=== PATIENT | female | born 1970 | race Caucasian/White ===

== ENCOUNTER 2020-05-14 11:18 | Outpatient (CLI) | payer OTHER, SELFPAY ==
--- NOTE | ~2020-05-14 | XR_ITS ---
XR knee LT min 4V 05/14/2020 11:54 Indication: Left knee pain Procedure: 4 views left knee Comparison: No prior studies for comparison. Findings: There is moderate-severe osteoarthritis of the left knee, most advanced in the medial and p atellofemoral compartments. No fracture or traumatic malalignment. No significant joint effusion. Impression: 1: Moderate-severe osteoarthritis of the left knee. Reviewed, dictated and finalized at location A. LYST IMPREGNATOR Impression: 1: Moderate-severe osteoarthritis of the left knee.
--- NOTE | ~2020-05-14 | XR_ITS ---
XR knee RT min 4V 05/14/2020 11:54 Indication: Right knee pain Procedure: 4 views right knee Comparison: 07/22/2016 Findings: There is moderate-severe tricompartment osteoarthritis of the right knee, most advanced in the medial and patellofemoral compartments. No significant joint effusion. No fracture or traumatic m alalignment. No focal soft tissue abnormality. Impression: 1: Moderate-severe osteoarthritis of the right knee. Reviewed, dictated and finalized at location A. ING DIRECTOR Impression: 1: Moderate-severe osteoarthritis of the right knee.
== END 2020-05-14 11:19 | disposition home or self-care (01) ==
PROVIDERS: PCP Physician Assistant; Visit Provider Physician Assistant
DX: M17.0 Bilateral primary osteoarthritis of knee (principal)
CPT/HCPCS: 73564

== ENCOUNTER 2020-09-15 07:52 | Outpatient (CLI) | payer OTHER, SELFPAY ==
--- NOTE | 2020-09-15 09:04 | ECG_ITS ---
Measurements Intervals [place] Rate: 61 P: 22 MT: 132 QRS: -1 QRSD: 93 T: 13 QT: 441 QTc: 446 Interpretive Statements SINUS RHYTHM DELAYED PRECORDIAL R/S TRANSITION BASELINE ARTIFACT- I, III, AVR, AVF BORDERLINE ECG Electronically Signed On 09-15-2020 12:16:57 CDT by Sukhdeep Corbett D.O.
[2020-09-15 09:33] LABS: Basophils Absolute Auto 0.1 K/mm3 (0.0-0.1); Basophils Percent Auto 1.2 % (0.2-1.2); Eosinophils Absolute Auto 0.1 K/mm3 (0-0.3); Eosinophils Percent Auto 1.5 % (0-4.4); Immature Granulocyte Absolute 0.07 K/mm3 (0.00-0.031); Immature Granulocyte Percent A 1.2 % (0-0.5); Lymphocytes Absolute Auto 1.35 K/mm3 (0.9-3.2); Lymphocytes Percent Auto 22.7 % (18.3-44.2); Mean Corpuscular HGB Conc 33.3 g/dl (32-36); Mean Corpuscular Hemoglobin 30.6 pg (26-34); Mean Corpuscular Volume 91.9 fl (80-100); Mean Platelet Volume 9.5 fl (7.4-10.4); Monocytes Absolute Auto 0.6 K/mm3 (0.1-0.6); Monocytes Percent Auto 10.6 % (2.6-8.5); Neutrophils Absolute Auto 3.7 K/mm3 (1.3-6.7); Neutrophils Percent Auto 62.8 % (45.5-73.1); Platelet Count Result 317 k/mm3 (150-375); Red Blood Count 4.57 M/mm3 (4.2-5.4); Red Cell Distribution Width 12.1 % (11.5-14.5); White Blood Count 5.9 K/mm3 (4.5-10.0)
[2020-09-15 09:49] LABS: Add Urine Microscopic? YES; Appearance Urine Cloudy (Clear); Bacteria Urine Trace /hpf; Bilirubin Urine Negative (Negative); Blood Urine 3+ (Negative); Color Urine Amber (Yellow); Glucose Urine UA Negative (Negative); Ketones Urine Negative (Negative); Leukocyte Esterase Ur Trace LEU/UL (Negative); Mucus Urine Few /lpf; Nitrate Urine Negative (Negative); Protein Urine 1+ mg/dL (Negative); RBC Urine 0-2 /hpf (0-2); Specific Grav Ur 1.025 (1.001-1.035); Squamous Epithelial Cell Urine Few /hpf (Few); Urobilinogen Urine Negative mg/dL (<2.0)
[2020-09-15 09:58] LABS: INR 0.9
[2020-09-15 09:59] LABS: Partial Thromboplastin Time 23.7 SECONDS (22.3-36.8)
[2020-09-15 10:07] LABS: Anion Gap 4 mmol/L (8-16); Blood Urea Nitrogen 15 mg/dL (7-17); Calcium 8.9 mg/dL (8.4-10.2); Carbon Dioxide 30 mmol/L (22-30); Chloride 108 mmol/L (98-107); Estimated Glomerular Filt Rate > 60; Glucose 84 mg/dL (65-105); Potassium 4.1 mmol/L (3.4-5.0); Sodium 142 mmol/L (137-145)
[2020-09-15 10:25] LABS: Hemoglobin A1C 5.2 % (<5.7)
[2020-09-15 10:44] LABS: Urine Cotinine NEGATIVE
== END 2020-09-15 07:53 | disposition home or self-care (01) ==
LOC: ANHSURGERY 07:55
PROVIDERS: PCP Physician Assistant; Visit Provider Orthopaedic Surgery
DX: M17.11 Unilateral primary osteoarthritis, right knee (principal); Z01.818 Encounter for other preprocedural examination; R94.31 Abnormal electrocardiogram [ECG] [EKG]
CPT/HCPCS: 80048; 80307; 81001; 82040; 83036; 85025; 85610; 85730; 86850; 86900; 86901; 87081; 87086; 87088; 93005

== ENCOUNTER → 2020-09-20 00:28 | Outpatient (CLI) | payer OTHER, SELFPAY ==
[2020-09-20 20:53] LABS: SARS-CoV-2 RNA PCR Negative
== END ==
PROVIDERS: PCP Physician Assistant; Visit Provider Orthopaedic Surgery
DX: Z01.812 Encounter for preprocedural laboratory examination (principal); Z20.822 Contact with and (suspected) exposure to COVID-19
CPT/HCPCS: C9803; U0003; U0005

== ENCOUNTER 2020-09-24 14:13 | Inpatient (IN) | payer OTHER, SELFPAY ==
[2020-09-15 08:11] VITALS: BP 147/80; PULSE 73; RESP 16; TEMP 37.1; O2SAT 98; BMI 37.0
[2020-09-24] VITALS (14 sets, daily range): BP systolic 104–159; BP diastolic 69–86; PULSE 63–94; RESP 14–20; TEMP 36.3–36.9; O2SAT 92–100
--- NOTE | ~2020-09-24 | XR_ITS ---
EXAMINATION: XR knee RT 2V DATE: 09/24/2020 13:01 INDICATION: Total right knee arthroplasty. Postop. TECHNIQUE: 2 views of right knee were obtained. COMPARISON: Right knee radiographs 07/24/2020 FINDINGS: There is a total right knee arthroplasty in near-anatomic alignment without patellar resurf acing. No fracture. There is gas in the knee joint and soft tissues, consistent with recent surgery. Anterior skin jamila are noted.. IMPRESSION: 1. Total right knee arthroplasty in near-anatomic alignment. Reviewed, dictated and finalized at location A.
--- NOTE | 2020-09-24 07:20 | WPDANESEPPF ---
Anes - Initial Pre Proc Eval Procedure: Operation Date: 09/24/20 10:30 Proposed Procedures p Right Total Knee Arthroplasty - Royal Ho MD Date/Time: 09/24/20 07:20 Surgeon: Royal Ho MD Pre Op Diagnosis: Right Knee DJD Patient Data Age: 50 Gender: F Height: 1.73 m Weight: 110.7 kg Last Vital Signs Temp 37.1 C 09/15/20 08:11 Pulse 73 09/15/20 08:11 Resp 16 09/15/20 08:11 BP 147/80 H 09/15/20 08:11 Pulse Ox 98 09/15/20 08:11 Allergies Allergy/AdvReac Type Severity Reaction Status Date / Time codeine AdvReac Mild Hallucinati Verified 09/24/20 08:53 ng Home Medications Medication Instructions Recorded Confirmed Type cholecalciferol (vitamin D3) 125 125 mcg PO DAILY 07/10/19 09/24/20 History mcg (5,000 unit) tablet laqeypya-vjrzrynh-rlyu 45 mg-folic 1 cap PO QAM cap 07/10/19 09/24/20 History acid 800 mcg-vit K 120 mcg capsule omega-3 fatty acids-fish oil 360 1 cap PO DAILY 07/10/19 09/24/20 History mg-1,200 mg capsule omeprazole 20 mg tablet,delayed 20 mg PO DAILY 07/10/19 09/24/20 History release turmeric root extract 500 mg 500 mg PO BID 07/10/19 09/24/20 History capsule atorvastatin 20 mg tablet 20 mg PO DAILY #90 tablet 01/07/20 09/24/20 Rx metoprolol tartrate 25 mg tablet 25 mg PO BID #180 tablet 01/07/20 09/24/20 Rx Boswellia 500 mg PO BID 09/15/20 09/24/20 History levothyroxine 175 mcg PO QAM 09/15/20 09/24/20 History sertraline 100 mg PO HS 09/15/20 09/24/20 History Patient hx anesthesia problems: none Family hx anesthesia problems: none PMFSH Past Medical History Medical History (Updated 09/15/20 @ 11:13 by CHIRAG Paulino) Abnormality of heart beat Arthritis Chronic headaches Degenerative joint disease of knee High cholesterol Hypertension Hypothyroidism Seasonal allergies Weight gain Surgical History Surgical History (Updated 09/24/20 @ 07:21 by Tayo Crockett DO) History of sleeve gastrectomy 2018 Family History Family History Mother Family history of thyroid disease Diabetes mellitus Hypertension Cerebrovascular accident Family history of malignant neoplasm of kidney Sibling Diabetes mellitus Father Family history of lung cancer Family history of malignant neoplasm of kidney Other Arthritis Social History Social History Second hand tobacco smoke exposure: No Alcohol intake: current Substance use: never Substance use type: does not use Living arrangements: with family Additional living arrangements comments: SPOUSE Gender identity (if verbalized by the patient): Female Spiritual care concerns: No Anes - Eval Final PreProcedure Day of Procedure 09/24/20 07:20 Patient weight: obese Heart: regular rate and rhythm Lungs: clear to auscultation and normal air movement Airway: Mallampati scale class II Neurological: alert and oriented Last oral intake: >/= 8 hours ASA classification: III Emergent: no Anesthetic plan: proceed Anesthesia type and monitoring: general ETT and standard monitoring Informed Consent: The patient's anesthetic plan and its attendant risks and benefits were discussed with the patient/family/POA. Questions were solicited and answers provided to the satisfaction of the patient/family/POA.
--- NOTE | 2020-09-24 07:21 | WPDANESPNB ---
Anes - Peripheral Nerve Block Date/Time: 09/24/20 07:21 I have discussed with the patient/family/POA the placement of a peripheral nerve block for post-operative pain management, including associated risks, benefits, complications, and side effects. Alternative methods of post-operative analgesia were detailed. Questions were solicited and answers provided to the satisfaction of the patient/family/POA. Time-Out: A pre-procedural Time-Out was completed immediately before starting the procedure and confirmed: Patient Identification, Site, Procedure, Patient Position and the Availability of Requisite Equipment. Clinical Indications: Acute post-operative pain management requested by the operative surgeon. Nerve Block Insertion Note Anes-nerve block: adductor canal right Patient position: supine Skin prep: chlorhexidine Needle: 22 gauge, stimulating, insulated echogenic needle. Needle length: 80 mm Technique: ultrasound Injectate: bupivacaine 0.5% with epi 5 mcg/ml (30cc - no epi) Observations: tolerated well Complications: none Procedure start time:: 1005 Procedure end time:: 100
--- NOTE | 2020-09-24 07:22 | WPDHPUPDATE1 ---
History and Physical Update Update Date/Time: 09/24/20 07:22 History and Physical has been reviewed, including an updated exam of the patient. There are NO changes in the patient's condition. Risks, benefits, and alternatives have been discussed and questions answered. Patient agrees to proceed with procedure.
[2020-09-24] MEDS: ACETAMINOPHEN 500 MG TABLET 1000 MG PO (08:58)
[2020-09-24] MEDS: LACTATED RINGERS 1,000 ML 30 ML IV CONT ×2 (09:10→12:45)
[2020-09-24] MEDS: TRANEXAMIC ACID 1,000MG/ISO100 1,000 MG/100 ML BAG 200 MG IVPB (10:02)
[2020-09-24] MEDS: ceFAZolin 2 GM/D5W 50 ML 2 GM/50 ML BAG IVPB ×2 (10:22→18:03)
[2020-09-24] MEDS: GENTAMICIN BONE CEMENT REFOBACIN 1 EACH TOPICAL (11:36)
--- NOTE | 2020-09-24 12:41 | PM.PROC ---
Procedure Note - Detailed Date of procedure: 09/24/20 Pre-op diagnosis: Right Knee DJD Post-op diagnosis: same Procedure performed: R TKA Description of procedure: THE RIGHT KNEE WAS PREPPED AND DRAPED IN THE STERILE FASHION. A MIDLINE SKIN INCISION WAS MADE. A MEDIAL PARAPATELLAR ARTHROTOMY WAS MADE. THE PATELLA WAS EVERTED. THERE WAS TRICOMPARTMENT DJD. THERE WAS MINIMAL PATELLA DJD. AN INTRAMEDULLARY CARINE WAS PLACED IN THE FEMUR. A DISTAL FEMORAL CUT WAS MADE IN 5 DEGREES OF VALGUS REMOVING APPROXIMATELY 9 MM OF BONE FROM THE DISTAL FEMUR. THE FEMUR WAS SIZED TO 67.5. A 67.5 FEMORAL CUTTING BLOCK WAS PLACED IN 3 DEGREES OF EXTERNAL ROTATION AND IN ALIGNMENT WITH JARROD'S LINE AND THE TRANSEPICONDYLAR AXIS. ANTERIOR POSTERIOR AND CHAMFER CUTS WERE MADE. THE CUTS WERE EXCELLENT. NEXT AN INTRAMEDULLARY CUTTING GUIDE WAS PLACED IN THE TIBIA. A TRANS TIBIAL CUT WAS MADE ALONG THE LONG AXIS OF THE TIBIA. APPROXIMATELY 10 MM OF BONE WAS REMOVED FROM THE HIGH SIDE OF THE TIBIA. THE TIBIA WAS THEN PLANED TO A SMOOTH SURFACE. POSTERIOR FEMORAL OSTEOPHYTES WERE REMOVED FROM THE FEMORAL CONDYLES. A 75 TIBIAL TRIAL WAS PLACED IN ALIGNMENT WITH THE 1/3 MEDIAL ASPECT OF THE TIBIAL TUBERCLE. THEN A 67.5 FEMORAL TRIAL COMPONENT WAS PLACED. BOTH HAD EXCELLENT FITS. EVENTUALLY A 10 MM POLYETHYLENE TRIAL COMPONENT WAS PLACED. THE KNEE WAS TAKEN THROUGH A RANGE OF MOTION. THE KNEE CAME OUT TO FULL EXTENSION. THERE WAS NO ABNORMAL TILT TO THE PATELLA. THERE WAS GOOD A/P AND VARUS/VALGUS STABILITY. THERE WAS NO EXCESSIVE ROLL BACK WITH FLEXION. THE TRIAL COMPONENTS WERE REMOVED. THEN A 67.5 FEMORAL COMPONENT AND 75 TIBIAL COMPONENT WITH A 10 CR POLYETHYLENE COMPONENT WERE PRESS FIT INTO PLACE. THE IMPLANTS WERE FLUSH WITH THE CUT BONE SURFACES. THE KNEE WAS TAKEN THROUGH A ROM AGAIN AND FOUND TO BE STABLE WITH NO PATELLA TILT NO EXCESSIVE ROLL BACK WITH FLEXION AND GOOD STABILITY WITH COMPLETE AND FULL EXTENSION. THE KNEE WAS IRRIGATED WITH STERILE BETADINE AND WATER FOR ABOUT 3 MINUTES. THE BLEEDERS WERE CAUTERIZED. THE ARTHROTOMY WAS REPAIRED WITH NUMBER 1 VICRYL. THE SUB CUTANEOUS LAYER WITH 2-0 VICRYL AND THE SKIN WITH CANDACE. THE WOUND WAS WASHED AND A STERILE DRESSING WAS APPLIED. PATIENT WAS EXTUBATED. Anesthesia: GETA Surgeon: Royal Ho MD Estimated blood loss (mL): 100 Complications: No immediate complications Condition: stable Disposition: PACU
--- NOTE | 2020-09-24 13:30 | SUR.PHASEI ---
1250 2 VIEWS OF XRAY TAKEN OF RT KNEE IN PACU.
[2020-09-24] MEDS: fentaNYL CITRATE INJ (*CRX) 100 MCG/2 ML VIAL 25 MCG IV PUSH ×2 (13:40→13:43)
--- NOTE | 2020-09-24 14:25 | ADMGEN ---
This patient, Morena Ch, was admitted to 2 Medical Room 259-01. Patient/family oriented to hospital policies and general routines including ID bracelet, bed and alarms, visiting hours, pain management, procedures, bathroom and other care routines, personal items, smoking policy, room service/diet, and visiting hours. Information on how to activate the Rapid Response Team has been discussed. Patient/Family are encouraged to report perceived risks to care and to ask questions if they do not understand what they are told or what they should do.
[2020-09-24] MEDS: DOCUSATE SODIUM 100 MG CAPSULE PO (18:01)
[2020-09-24] MEDS: oxyCODONE/ACETAMINOPHEN (*CRX) 5-325 MG TABLET 1 TABLET PO ×2 (18:02→22:52)
[2020-09-24] MEDS: SERTRALINE HCL 50 MG TABLET 100 MG PO (21:41)
[2020-09-24] MEDS: METOPROLOL TARTRATE 25 MG TABLET PO (21:41)
[2020-09-25 00:10] VITALS: BP 127/70; PULSE 74; RESP 20; TEMP 36.3; O2SAT 98
[2020-09-25] MEDS: ceFAZolin 2 GM/D5W 50 ML 2 GM/50 ML BAG IVPB ×2 (01:48→09:23)
[2020-09-25 04:10] VITALS: BP 144/81; PULSE 70; RESP 20; TEMP 36.4; O2SAT 98
[2020-09-25 05:36] LABS: Basophils Absolute Auto 0.1 K/mm3 (0.0-0.1); Basophils Percent Auto 0.5 % (0.2-1.2); Eosinophils Percent Auto 0.2 % (0-4.4); Hematocrit 34.7 % (37.0-47.0); Hemoglobin 11.7 g/dL (12.0-15.0); Immature Granulocyte Absolute 0.08 K/mm3 (0.00-0.031); Immature Granulocyte Percent A 0.6 % (0-0.5); Lymphocytes Absolute Auto 1.21 K/mm3 (0.9-3.2); Lymphocytes Percent Auto 9.3 % (18.3-44.2); Mean Corpuscular HGB Conc 33.7 g/dl (32-36); Mean Corpuscular Hemoglobin 30.9 pg (26-34); Mean Corpuscular Volume 91.6 fl (80-100); Mean Platelet Volume 9.6 fl (7.4-10.4); Monocytes Absolute Auto 1.4 K/mm3 (0.1-0.6); Monocytes Percent Auto 10.6 % (2.6-8.5); Neutrophils Absolute Auto 10.3 K/mm3 (1.3-6.7); Neutrophils Percent Auto 78.8 % (45.5-73.1); Platelet Count Result 262 k/mm3 (150-375); Red Blood Count 3.79 M/mm3 (4.2-5.4); Red Cell Distribution Width 12.1 % (11.5-14.5); White Blood Count 13.1 K/mm3 (4.5-10.0)
[2020-09-25 05:52] LABS: Anion Gap 3 mmol/L (8-16); Blood Urea Nitrogen 11 mg/dL (7-17); Calcium 8.5 mg/dL (8.4-10.2); Carbon Dioxide 29 mmol/L (22-30); Chloride 104 mmol/L (98-107); Estimated CRCL calculation 107 ml/min; Estimated Glomerular Filt Rate > 60; Glucose 106 mg/dL (65-105); Potassium 4.2 mmol/L (3.4-5.0); Sodium 136 mmol/L (137-145)
[2020-09-25] MEDS: LEVOTHYROXINE SODIUM 125 MCG TABLET PO (06:30)
[2020-09-25] MEDS: LEVOTHYROXINE SODIUM 50 MCG TABLET PO (06:30)
[2020-09-25] MEDS: CHOLECALCIFEROL 1,000 UNITS TABLET 5000 UNITS PO (07:57)
[2020-09-25] MEDS: ATORVASTATIN 20 MG TABLET PO (07:57)
[2020-09-25] MEDS: ASPIRIN 325 MG ENTERIC TABLET 650 MG PO (07:57)
[2020-09-25] MEDS: DOCUSATE SODIUM 100 MG CAPSULE PO ×2 (07:57→17:08)
[2020-09-25 07:58] VITALS: PULSE 80
[2020-09-25] MEDS: METOPROLOL TARTRATE 25 MG TABLET PO (07:58)
[2020-09-25] MEDS: oxyCODONE/ACETAMINOPHEN (*CRX) 5-325 MG TABLET 1 TABLET PO ×2 (08:08→15:35)
--- NOTE | 2020-09-25 09:17 | PM.PNORT ---
Progress Note: A&P Assessment and Plan (1) S/P total knee arthroplasty: Qualifiers: Laterality: right Qualified Code(s): Z96.651 - Presence of right artificial knee joint Code(s): Z96.659 - Presence of unspecified artificial knee joint Status: Acute Assessment and Plan: POD #1: Right TKA Continue PT/OT. WBAT. Walker. HIGH FALL RISK. Continue pain control. Ice knee. SCDs. Incentive Spirometry. DVT prophylaxis. Monitor dressing. Change prior to discharge. Dispo: Home with Home Health pending progress with PT/OT. Subjective Subjective Date/Time Seen: 09/25/20 09:17 POD #1: RIGHT TKA No new complaints. Feeling great. Worked well with OT. Awaiting PT. Tolerated breakfast well. Review of Systems Review of Systems: All systems reviewed & are unremarkable except as noted in HPI and below Constitutional: Constitutional: Denies fever(s) and Denies headache(s) ENT: Denies headache(s) Cardiovascular: Cardiovascular: Denies chest pain, Denies diaphoresis, Denies palpitations and Denies dyspnea Respiratory: Respiratory: Denies dyspnea Gastrointestinal: Gastrointestinal: Denies abdominal pain, Denies constipation, Denies nausea and Denies vomiting Genitourinary: Genitourinary: Reports nocturia and Denies dysuria Musculoskeletal: Musculoskeletal: Reports arthralgias (Right Knee ) and Reports joint swelling (Right Knee ) Neurologic: Denies headache(s) Endocrine: Endocrine: Denies palpitations Exam Const: General: comfortable and no acute distress Resp: Effort & Inspection: normal respiratory effort Cardio: Rate: regular rate Rhythm: regular rhythm GI: GI Palp: Yes Soft to palpation, No Tenderness to palpation present (GI) and No Guarding due to palpation present (GI) Skin: Wounds: wounds noted Other: Incision c/d/i. No surrounding redness/warmth. No hematoma. Mild ecchymosis. No wound dehiscence Neuro: Cognition (Neuro): normal cognition Other: NV intact aside from block. Moves toes. Sensation intact to light touch. Limitations with dorsiflexion noted. Dressing c/d/i. Extrem: Right upper extremity: normal to inspection, full ROM and normal capillary refill Left upper extremity: normal to inspection, full ROM and normal capillary refill Right lower extremity: normal to inspection, full ROM (ROM limited due to recent surgical intervention ), knee Details: tenderness (diffuse, mild ) and swelling (diffuse, mild ), ankle Details: abnormal ROM (limitations with dorsiflexion. ); no tenderness, no swelling and ROM abnormal and foot Details: vascular exam Details: dorsalis pedis pulse present and motor-sensory exam Details: light-touch normal Location: in all toes and in the great toe; ROM of toes abnormal Left lower extremity: normal to inspection Psych: Mental Status: mental status grossly normal Objective Data Vital Signs Vital Signs: Vital Signs - 24 hr 09/24/20 12:45 09/24/20 13:00 09/24/20 13:15 Temperature 36.4 C Pulse Rate 94 63 82 Respiratory Rate 16 18 16 Blood Pressure 105/85 135/76 140/78 Pulse Oximetry 97 100 100 09/24/20 13:30 09/24/20 13:45 09/24/20 14:00 Temperature 36.5 C Pulse Rate 82 81 74 Respiratory Rate 16 14 16 Blood Pressure 143/71 H 133/69 138/82 Pulse Oximetry 94 98 92 09/24/20 14:11 09/24/20 14:25 09/24/20 14:40 Temperature 36.7 C 36.6 C Pulse Rate 77 72 69 Respiratory Rate 16 16 16 Blood Pressure 138/81 104/86 137/82 Pulse Oximetry 93 93 95 09/24/20 15:10 09/24/20 16:10 09/24/20 20:10 Temperature 36.8 C 36.7 C 36.3 C L Pulse Rate 65 86 89 Respiratory Rate 16 16 20 Blood Pressure 137/72 146/77 H 159/81 H Pulse Oximetry 95 99 98 09/24/20 21:41 09/25/20 00:10 09/25/20 04:10 Temperature 36.3 C L 36.4 C L Pulse Rate 88 74 70 Respiratory Rate 20 20 Blood Pressure 127/70 144/81 H Pulse Oximetry 98 98 09/25/20 07:58 Temperature Pulse Rate 80 Respiratory Rate Blood Pressure Pulse Oximetry
[2020-09-25] MEDS: PANTOPRAZOLE 40 MG TABLET PO (09:23)
[2020-09-25 10:10] VITALS: BP 105/60; PULSE 69; RESP 16; TEMP 36.6; O2SAT 97
--- NOTE | 2020-09-25 10:55 | P.PNAN_ITS ---
Anes - Prog Note Post-Op Date/Time: 09/25/20 10:55 Cardiovascular status: normal Respiratory status: normal Airway patency: baseline Mental status: baseline Post-Op hydration status: normal Vital Signs: Last Vital Signs Temp 36.6 C 09/25/20 10:10 Pulse 69 09/25/20 10:10 Resp 16 09/25/20 10:10 BP 105/60 09/25/20 10:10 Pulse Ox 97 09/25/20 10:10 Pain Score (VAS): 06/08 I/O: Intake & Output 09/24/20 09/25/20 09/25/20 23:59 07:59 15:59 Intake Total 530 800 240 Output Total 1000 Balance 530 -200 240 Laboratory Tests 09/25/20 05:01 09/25/20 05:01 09/25/20 09/25/20 05:01 05:01 WBC 13.1 H RBC 3.79 L Hgb 11.7 L Hct 34.7 L MCV 91.6 MCH 30.9 MCHC 33.7 RDW 12.1 Plt Count 262 MPV 9.6 Immature Gran % (Auto) 0.6 H Neut % (Auto) 78.8 H Lymph % (Auto) 9.3 L Taylor % (Auto) 10.6 H Eos % (Auto) 0.2 Baso % (Auto) 0.5 Lymph # (Auto) 1.21 Taylor # (Auto) 1.4 H Eos # (Auto) 0.0 Baso # (Auto) 0.1 Abs Immat Gran (auto) 0.08 H Absolute Neuts (auto) 10.3 H Absolute Nucleated RBC 0.0 Nucleated RBC % 0.0 Sodium 136 L Potassium 4.2 Chloride 104 Carbon Dioxide 29 Anion Gap 3 L BUN 11 Creatinine 0.70 Estim Creat Clear Calc 107 Estimated GFR > 60 Glucose 106 H Calcium 8.5 Post-procedural complaints: none Patient Feedback: Patient satisfied with anesthetic care.
[2020-09-25 14:00] VITALS: BP 131/79; PULSE 78; RESP 16; TEMP 36.3; O2SAT 98
[2020-09-25 18:00] VITALS: BP 142/71; PULSE 82; RESP 16; TEMP 36.6; O2SAT 99
--- NOTE | 2020-10-23 15:13 | PM.DS ---
DS: Admitting Diagnosis Admitting Diagnosis Admitting Diagnosis: right knee DJD DS: Discharge Diagnosis Discharge Diagnosis (1) S/P total knee arthroplasty: Qualifiers: Laterality: right Qualified Code(s): Z96.651 - Presence of right artificial knee joint Code(s): Z96.659 - Presence of unspecified artificial knee joint Status: Acute Assessment and Plan: POD #1: Right TKA Continue PT/OT. WBAT. Walker. HIGH FALL RISK. Continue pain control. Ice knee. SCDs. Incentive Spirometry. DVT prophylaxis. Monitor dressing. Change prior to discharge. Dispo: Home with Home Health pending progress with PT/OT. DS: Summary Hospital Course Reason for hospitalization: right knee DJD Hospital Course: 50-year-old female admitted status post right total knee arthroplasty for postoperative medical management, pain control and mobilization with physical therapy and occupational therapy. Patient progressed well on postop day 1. She worked well with PT and OT however she did suffer from decreased strength with dorsiflexion. She was ultimately cleared by Physical therapy and Occupational therapy to be discharged home with home health. Her pain was well controlled. She will follow up in the outpatient clinic in approximately 3 weeks for re-evaluation. Patient may require drop foot brace, we will re-evaluate in the outpatient setting. Status at Discharge Functional status at discharge: uses cane/walker Overall status at discharge: patient is progressing back to baseline Time Spent with Patient Time attestation: Total time spent providing and/or coordinating discharge services: Exam Const: General: comfortable and no acute distress Resp: Effort & Inspection: normal respiratory effort Cardio: Rate: regular rate Rhythm: regular rhythm Skin: Wounds: wounds noted Other: Incision c/d/i. No surrounding redness/warmth. No hematoma. Mild ecchymosis. No wound dehiscence Neuro: Cognition (Neuro): normal cognition Other: NV intact. Moves toes. Sensation intact to light touch. Limitations with dorsiflexion noted. Dressing c/d/i. Extrem: Right upper extremity: normal to inspection, full ROM and normal capillary refill Left upper extremity: normal to inspection, full ROM and normal capillary refill Right lower extremity: normal to inspection, full ROM (ROM limited due to recent surgical intervention ), knee Details: tenderness (diffuse, mild ) and swelling (diffuse, mild ), ankle Details: abnormal ROM (limitations with dorsiflexion. ); no tenderness, no swelling and ROM abnormal and foot Details: vascular exam Details: dorsalis pedis pulse present and motor-sensory exam Details: light-touch normal Location: in all toes and in the great toe; ROM of toes abnormal Left lower extremity: normal to inspection Psych: Mental Status: mental status grossly normal Discharge Plan Discharge Attending physician on discharge: Royal Ho Consulting providers: Charisma Sommers ; Raúl Garzon V. Discharging Clinician: Charisma Sommers Anticipated Discharge Date/Time: 09/25/20 16:00 Patient Disposition: Home Health Service Activity: may shower, no driving and follow weight bearing status Diet: as tolerated Wound Care Instructions: follow printed instructions Discharge Instructions: Post Op Total Knee Replacement Instructions Dr. Royal Ho [phone] ?Your dressing will be changed prior to your discharge. You will be sent home with one additional dressing to be changed in 5 days by the home health RN. Your jamila will be removed on the 14th day after surgery and steri-strips will be placed. ?You may shower with your dressing but do not submerge in a bath tub. ?Do not drive or operate machinery until you are released by Dr. Ho. ?Do not walk without a walker for any reason until you are released by Dr. Ho. ?Continue to use your ice machine. Please use a towel or pillow case to protect your
== END 2020-09-25 18:25 | disposition home health service (06) | DRG 470 ==
LOC: ANH2MED 14:49
PROVIDERS: Admitting Provider Orthopaedic Surgery; PCP Physician Assistant; Visit Provider Orthopaedic Surgery
PROC: 0SRC0J9 Replacement of Right Knee Joint with Synthetic Substitute, Cemented, Open Approach (ICD-10-PCS; CPT 27447; principal; 2020-09-24 10:30)
DX: M17.11 Unilateral primary osteoarthritis, right knee (principal); I10 Essential (primary) hypertension; E03.9 Hypothyroidism, unspecified; Z90.3 Acquired absence of stomach [part of]; E66.9 Obesity, unspecified; Z68.37 Body mass index [BMI] 37.0-37.9, adult
CPT/HCPCS: 36415; 73560; 80048; 85025; 97110; 97116; 97161; 97165; A9270; C1713; C1776; J0171; J0330; J0690; J1200; J2250; J2270; J2405; J2704; J2795; J3010; J7120

== ENCOUNTER 2020-10-02 10:38 | Outpatient (CLI) | payer OTHER, SELFPAY ==
--- NOTE | ~2020-10-02 | US_ITS ---
EXAMINATION: US venous doppler LE RT DATE: 10/02/2020 11:11 INDICATION: Right lower limb pain and swelling. TECHNIQUE: Grayscale ultrasound images without and with compression and Doppler ultrasound images of the right lower extremity veins were obtained. COMPARISON: None. FINDINGS: The visualized portions of right common femoral vein, profunda (deep) femoral vein, femoral vein, pop liteal vein, peroneal trunk, posterior tibial veins, peroneal veins, gastrocnemius vein and greater s aphenous vein outflow are patent. IMPRESSION: 1. No deep venous thrombosis in the right lower limb. Reviewed, dictated and finalized at location A.
== END 2020-10-02 10:39 | disposition home or self-care (01) ==
PROVIDERS: PCP Physician Assistant; Visit Provider Nurse Practitioner Family
DX: M79.661 Pain in right lower leg (principal)
CPT/HCPCS: 93971

== ENCOUNTER 2020-12-12 09:53 | Outpatient (CLI) | payer OTHER, BC, SELFPAY ==
[2020-12-12 10:58] LABS: Basophils Absolute Auto 0.1 K/mm3 (0.0-0.1); Eosinophils Absolute Auto 0.1 K/mm3 (0-0.3); Hematocrit 41.7 % (37.0-47.0); Hemoglobin 13.6 g/dL (12.0-15.0); Immature Granulocyte Absolute 0.05 K/mm3 (0.00-0.031); Immature Granulocyte Percent A 0.8 % (0-0.5); Lymphocytes Absolute Auto 1.21 K/mm3 (0.9-3.2); Lymphocytes Percent Auto 20.3 % (18.3-44.2); Mean Corpuscular HGB Conc 32.6 g/dl (32-36); Mean Corpuscular Hemoglobin 30.1 pg (26-34); Mean Corpuscular Volume 92.3 fl (80-100); Mean Platelet Volume 9.2 fl (7.4-10.4); Monocytes Absolute Auto 0.7 K/mm3 (0.1-0.6); Monocytes Percent Auto 12.1 % (2.6-8.5); Neutrophils Absolute Auto 3.8 K/mm3 (1.3-6.7); Neutrophils Percent Auto 63.8 % (45.5-73.1); Platelet Count Result 310 k/mm3 (150-375); Red Blood Count 4.52 M/mm3 (4.2-5.4); Red Cell Distribution Width 12.6 % (11.5-14.5)
[2020-12-12 11:03] LABS: Add Urine Microscopic? YES; Appearance Urine Cloudy (Clear); Bacteria Urine Trace /hpf; Bilirubin Urine Negative (Negative); Blood Urine Negative (Negative); Color Urine Amber (Yellow); Glucose Urine UA Negative (Negative); Ketones Urine Negative (Negative); Leukocyte Esterase Ur Negative LEU/UL (Negative); Mucus Urine Few /lpf; Nitrate Urine Negative (Negative); Protein Urine Negative (Negative); Specific Grav Ur 1.023 (1.001-1.035); Squamous Epithelial Cell Urine Occasional /hpf (Few); Urobilinogen Urine Negative mg/dL (<2.0); WBC Urine 0-3 /hpf
[2020-12-12 11:05] LABS: Albumin Level 4.2 g/dL (3.5-5.1); Anion Gap 8 mmol/L (8-16); Blood Urea Nitrogen 12 mg/dL (7-17); Calcium 9.5 mg/dL (8.4-10.2); Carbon Dioxide 26 mmol/L (22-30); Chloride 104 mmol/L (98-107); Estimated Glomerular Filt Rate > 60; Glucose 109 mg/dL (65-105); Potassium 4.1 mmol/L (3.4-5.0); Sodium 138 mmol/L (137-145)
[2020-12-12 11:07] LABS: Urine Cotinine NEGATIVE
[2020-12-12 11:09] LABS: Prothrombin Time 12.6 Seconds (11.1-14.7)
[2020-12-12 11:11] LABS: Partial Thromboplastin Time 23.3 SECONDS (22.3-36.8)
[2020-12-12 11:13] LABS: Hemoglobin A1C 5.4 % (<5.7)
== END 2020-12-12 09:54 | disposition home or self-care (01) ==
LOC: ANHSURGERY 10:00
PROVIDERS: PCP Physician Assistant; Visit Provider Orthopaedic Surgery
DX: M17.12 Unilateral primary osteoarthritis, left knee (principal); Z01.818 Encounter for other preprocedural examination
CPT/HCPCS: 80048; 80307; 81001; 82040; 83036; 85025; 85610; 85730; 86850; 86900; 86901; 87081

== ENCOUNTER 2020-12-24 00:35 | Day surgery (SDC) | payer OTHER, BC, SELFPAY ==
[2020-12-12 10:17] VITALS: BP 176/96; PULSE 80; RESP 20; TEMP 36.9; O2SAT 99; BMI 39.1
--- NOTE | 2020-12-23 09:00 | WPDANESEPPF ---
Anes - Initial Pre Proc Eval Procedure: Operation Date: 12/24/20 11:00 Proposed Procedures p Left Total Knee Arthroplasty - Royal Ho MD Date/Time: 12/23/20 09:00 Surgeon: Royal Ho MD Pre Op Diagnosis: left knee DJD Patient Data Age: 50 Gender: F Height: 1.73 m Weight: 116.8 kg Last Vital Signs Temp 36.9 C 12/12/20 10:17 Pulse 80 12/12/20 10:17 Resp 20 12/12/20 10:17 BP 176/96 H 12/12/20 10:17 Pulse Ox 99 12/12/20 10:17 Allergies Allergy/AdvReac Type Severity Reaction Status Date / Time codeine AdvReac Mild Hallucinati Verified 12/24/20 09:24 ng Home Medications Medication Instructions Recorded Confirmed Type cholecalciferol (vitamin D3) 125 125 mcg PO HS 07/10/19 12/24/20 History mcg (5,000 unit) tablet azjjqkjl-ionskszz-kxcb 45 mg-folic 1 cap PO QAM cap 07/10/19 12/24/20 History acid 800 mcg-vit K 120 mcg capsule omega-3 fatty acids-fish oil 360 1 cap PO DAILY 07/10/19 12/24/20 History mg-1,200 mg capsule omeprazole 20 mg tablet,delayed 20 mg PO QAM 07/10/19 12/24/20 History release turmeric root extract 500 mg 500 mg PO BID 07/10/19 12/24/20 History capsule Boswellia 500 mg PO BID 09/15/20 12/24/20 History levothyroxine 175 mcg PO QAM 09/15/20 12/24/20 History sertraline 100 mg tablet 100 mg PO HS #90 tablet 12/08/20 12/24/20 Rx atorvastatin 20 mg PO HS 12/12/20 12/24/20 History metoprolol tartrate 25 mg tablet 50 mg PO BID #28 tablet 12/12/20 12/24/20 Rx Patient hx anesthesia problems: none Family hx anesthesia problems: none PMFSH Past Medical History Medical History Abnormality of heart beat Arthritis Calf pain Chronic headaches Degenerative joint disease of knee Foot drop High cholesterol Hypertension Hypothyroidism Right calf pain Seasonal allergies Weight gain Surgical History Surgical History History of sleeve gastrectomy 2018 S/P total knee arthroplasty Family History Family History Mother Family history of thyroid disease Diabetes mellitus Hypertension Cerebrovascular accident Family history of malignant neoplasm of kidney Sibling Diabetes mellitus Father Family history of lung cancer Family history of malignant neoplasm of kidney Other Arthritis Social History Social History Second hand tobacco smoke exposure: No Alcohol intake: never Alcohol use details: 3-4 per year Substance use: never Substance use type: does not use Living arrangements: with family Additional living arrangements comments: SPOUSE Gender identity (if verbalized by the patient): Female Spiritual care concerns: No Anes - Eval Final PreProcedure Day of Procedure 12/23/20 09:00 Patient weight: obese Heart: regular rate and rhythm Lungs: clear to auscultation and normal air movement Airway: Mallampati scale class II Neurological: alert and oriented Last oral intake: >/= 8 hours ASA classification: III Emergent: no Anesthetic plan: proceed Anesthesia type and monitoring: general LMA and standard monitoring Informed Consent: The patient's anesthetic plan and its attendant risks and benefits were discussed with the patient/family/POA. Questions were solicited and answers provided to the satisfaction of the patient/family/POA.
[2020-12-24] VITALS (10 sets, daily range): BP systolic 115–148; BP diastolic 74–93; PULSE 64–93; RESP 12–16; TEMP 36.8–37.3; O2SAT 97–100
--- NOTE | ~2020-12-24 | XR_ITS ---
EXAMINATION: XR knee LT 2V DATE: 12/24/2020 13:28 CDT INDICATION: Status post right knee arthroplasty TECHNIQUE: 2 views right knee FINDINGS: There is a right total knee arthroplasty in expected position. Subcutaneous gas with fluid and air in the joint and overlying skin jamila are consistent with recent surgery. No evidence of p eriprosthetic fracture. IMPRESSION: 1. Recent right total knee arthroplasty. Reviewed, dictated and finalized at location A.
--- NOTE | 2020-12-24 07:15 | WPDHPUPDATE1 ---
History and Physical Update Update Date/Time: 12/24/20 07:15 History and Physical has been reviewed, including an updated exam of the patient. There are NO changes in the patient's condition. Risks, benefits, and alternatives have been discussed and questions answered. Patient agrees to proceed with procedure.
[2020-12-24] MEDS: ACETAMINOPHEN 500 MG TABLET 1000 MG PO (09:35)
[2020-12-24] MEDS: LACTATED RINGERS 1,000 ML 30 ML IV CONT ×2 (09:42→13:05)
[2020-12-24] MEDS: TRANEXAMIC ACID 1,000MG/ISO100 1,000 MG/100 ML BAG 200 MG IVPB (10:20)
--- NOTE | 2020-12-24 10:51 | WPDANESPNB ---
Anes - Peripheral Nerve Block Date/Time: 12/24/20 10:51 I have discussed with the patient/family/POA the placement of a peripheral nerve block for post-operative pain management, including associated risks, benefits, complications, and side effects. Alternative methods of post-operative analgesia were detailed. Questions were solicited and answers provided to the satisfaction of the patient/family/POA. Time-Out: A pre-procedural Time-Out was completed immediately before starting the procedure and confirmed: Patient Identification, Site, Procedure, Patient Position and the Availability of Requisite Equipment. Clinical Indications: Acute post-operative pain management requested by the operative surgeon. Nerve Block Insertion Note Anes-nerve block: adductor canal left Patient position: supine Skin prep: chlorhexidine Needle: 22 gauge, stimulating, insulated echogenic needle. Needle length: 80 mm Technique: ultrasound Injectate: bupivacaine 0.5% with epi 5 mcg/ml (30cc - no epi) Observations: tolerated well Complications: none Procedure start time:: 1045 Procedure end time:: 1048
[2020-12-24] MEDS: ceFAZolin 2 GM/D5W 50 ML 2 GM/50 ML BAG IVPB (10:59)
[2020-12-24] MEDS: GENTAMICIN BONE CEMENT REFOBACIN 1 EACH TOPICAL (11:56)
--- NOTE | 2020-12-24 13:03 | W.PM.PROC2 ---
Procedure Note - Detailed Date of Procedure 12/24/20 Pre-op Diagnosis left knee DJD Post-op Diagnosis same Procedure Performed L TKA Surgeon Royal Ho MD Anesthesia general Description of Procedure THE LEFT KNEE WAS PREPPED AND DRAPED IN THE STERILE FASHION. THERE WAS A 20 DEGREE FLEXION CONTRACTURE. A MIDLINE SKIN INCISION WAS MADE. A MEDIAL PARAPATELLAR ARTHROTOMY WAS MADE. THE PATELLA WAS EVERTED. THERE WAS TRICOMPARTMENT DJD. THERE WAS MINIMAL PATELLA DJD. AN INTRAMEDULLARY CARINE WAS PLACED IN THE FEMUR. A DISTAL FEMORAL CUT WAS MADE IN 5 DEGREES OF VALGUS REMOVING APPROXIMATELY 11 MM OF BONE FROM THE DISTAL FEMUR. THE FEMUR WAS SIZED TO 67.5. A 67.5 FEMORAL CUTTING BLOCK WAS PLACED IN 3 DEGREES OF EXTERNAL ROTATION AND IN ALIGNMENT WITH JARROD'S LINE AND THE TRANSEPICONDYLAR AXIS. ANTERIOR POSTERIOR AND CHAMFER CUTS WERE MADE. THE CUTS WERE EXCELLENT. NEXT AN INTRAMEDULLARY CUTTING GUIDE WAS PLACED IN THE TIBIA. A TRANS TIBIAL CUT WAS MADE ALONG THE LONG AXIS OF THE TIBIA. APPROXIMATELY 10 MM OF BONE WAS REMOVED FROM THE HIGH SIDE OF THE TIBIA. THE TIBIA WAS THEN PLANED TO A SMOOTH SURFACE. POSTERIOR FEMORAL OSTEOPHYTES WERE REMOVED FROM THE FEMORAL CONDYLES. A 71 TIBIAL TRIAL WAS PLACED IN ALIGNMENT WITH THE 1/3 MEDIAL ASPECT OF THE TIBIAL TUBERCLE. THEN A 67.5 FEMORAL TRIAL COMPONENT WAS PLACED. BOTH HAD EXCELLENT FITS. EVENTUALLY A 14 MM CR POLYETHYLENE TRIAL COMPONENT WAS PLACED. THE KNEE WAS TAKEN THROUGH A RANGE OF MOTION. THE KNEE CAME OUT TO FULL EXTENSION. THERE WAS NO ABNORMAL TILT TO THE PATELLA. THERE WAS GOOD A/P AND VARUS/VALGUS STABILITY. THERE WAS NO EXCESSIVE ROLL BACK WITH FLEXION. THE TRIAL COMPONENTS WERE REMOVED. THEN A 67.5 FEMORAL COMPONENT AND 71 TIBIAL COMPONENT WITH A 14 CR POLYETHYLENE COMPONENT WERE CEMENTED INTO PLACE. ONCE THE CEMENT WAS HARD THE KNEE WAS TAKEN THROUGH A ROM AGAIN AND FOUND TO BE STABLE WITH NO PATELLA TILT NO EXCESSIVE ROLL BACK WITH FLEXION AND GOOD STABILITY WITH COMPLETE AND FULL EXTENSION. THE KNEE WAS IRRIGATED WITH STERILE BETADINE AND WATER FOR ABOUT 3 MINUTES. THE BLEEDERS WERE CAUTERIZED. THE ARTHROTOMY WAS REPAIRED WITH NUMBER 1 VICRYL. THE SUB CUTANEOUS LAYER WITH 2-0 VICRYL AND THE SKIN WITH CANDACE. THE WOUND WAS WASHED AND A STERILE DRESSING WAS APPLIED. PATIENT WAS EXTUBATED. Estimated Blood Loss -150.0 Pathology none sent Complications No immediate complications Condition stable Disposition PACU
[2020-12-24] MEDS: fentaNYL CITRATE INJ (*CRX) 100 MCG/2 ML VIAL 25 MCG IV PUSH ×4 (13:24→13:39)
[2020-12-24] MEDS: oxyCODONE HCL (*CRX) 5 MG TAB IR PO (14:28)
--- NOTE | 2020-12-24 14:31 | SUR.PHASEII ---
DIET ORDERED FOR PATIENT. PHYSICAL THERAPY CALLED.
--- NOTE | 2020-12-24 15:07 | SUR.PHASEII ---
MEAL ARRIVED. PHYSICAL THERAPIST HERE TO WORK WITH PATIENT.
--- NOTE | 2020-12-24 15:26 | SUR.PHASEII ---
ANESTHESIOLOGY OKAY'D FOR PATIENT TO GO HOME.
--- NOTE | 2020-12-24 15:31 | SUR.PHASEII ---
PATIENT STATES SHE IS READY TO GO HOME. TOLERATED LUNCH.
== END 2020-12-24 15:39 | disposition home or self-care (01) ==
PROVIDERS: PCP Physician Assistant; Visit Provider Orthopaedic Surgery
PROC: (CPT 27447; principal; 2020-12-24 11:00)
DX: M17.12 Unilateral primary osteoarthritis, left knee (principal); G89.18 Other acute postprocedural pain; I10 Essential (primary) hypertension; E78.00 Pure hypercholesterolemia, unspecified; E03.9 Hypothyroidism, unspecified; M21.379 Foot drop, unspecified foot; Z98.84 Bariatric surgery status; E66.9 Obesity, unspecified; Z68.36 Body mass index [BMI] 36.0-36.9, adult
CPT/HCPCS: 27447; 64447; 73560; 80048; 80307; 81001; 82040; 83036; 85025; 85610; 85730; 86850; 86900; 86901; 87081; 97161; A9270; C1713; C1776; J0171; J0330; J0690; J1100; J2250; J2270; J2405; J2704; J2710; J2795; J3010; J7120

== ENCOUNTER 2021-07-29 13:44 | Outpatient (CLI) | payer OTHER, BC, SELFPAY ==
--- NOTE | ~2021-07-29 | MM_ITS ---
EXAMINATION: MM screening [facility] BI w juliane HISTORY: Screening mammogram TECHNIQUE: Craniocaudal and mediolateral oblique 3-D tomosynthesis images were obtained and synthetic 2-D images were generated. CAD analysis was submitted and interpreted. COMPARISON: 10/09/2018, 09/21/2018 BREAST PARENCHYMAL COMPOSITION: There are scattered areas of fibroglandular density. FINDINGS: There is no evidence of suspicious mass, calcification, or architectural distortion to sugg est malignancy in either breast. There has been no suspicious interval change. IMPRESSION: 1. No mammographic evidence of malignancy. 2. Recommend routine screening mammography in one year. BI-RADS Category 1: Negative Reviewed, dictated and finalized at location A. ULTANT[employer] INTERN
== END 2021-07-29 13:45 | disposition home or self-care (01) ==
LOC: ANHIMG 13:45
PROVIDERS: PCP Family Medicine; Visit Provider Family Medicine
DX: Z12.31 Encounter for screening mammogram for malignant neoplasm of breast (principal)
CPT/HCPCS: 77063; 77067